=== PATIENT | female | born 1995 | race Hispanic/Latino ===

== ENCOUNTER 2022-12-13 13:04 | Emergency (ER) | payer OTHER, SELFPAY ==
[2022-12-13 13:26] VITALS: BP 130/74; PULSE 88; RESP 15; TEMP 36.3; O2SAT 100; BMI 26.6
[2022-12-13 16:29] LABS: Appearance Urine UA SL CLOUDY; Bilirubin Urine UA NEGATIVE (NEGATIVE); Color Urine UA YELLOW; Glucose Urine UA NEGATIVE (Negative); Ketones Urine UA NEGATIVE (NEGATIVE); Leukocyte Esterase Urine UA NEGATIVE (NEGATIVE); Nitrite Urine UA NEGATIVE (Negative); Occult Blood Urine UA TRACE-LYSED (Negative); Protein Urine UA NEGATIVE (Negative); Specific Gravity Urine UA 1.015 (1.000-1.035); Urobilinogen Urine UA 0.2 E.U./dL (0.2)
--- NOTE | 2022-12-13 16:32 | ED_ITS ---
HPI - Headache <JOSE Kaye - Last Filed: 12/13/22 20:27> General Chief Complaint: Headache Stated Complaint: High BP N/V headache blurry vision T-3 Time Seen by Provider: 12/13/22 15:58 Mode of arrival: Ambulatory History of Present Illness HPI Narrative: This is a 27-year-old female presents to the emergency department complaining of headache, nausea vomiting, blurry vision today, states that she is had worsening symptoms over the last 3 days with elevated blood pressure. Patient is Andorran- speaking mostly but speaks some Azeri, her Marisabel is interpreting for her. She is had a headache since Saturday, has had nausea vomiting, denies fever, chills, abdominal pain or pelvic pain. Denies dysuria urinary frequency, denies abnormal vaginal discharge. Denies any sick contacts at home. Is up-to-date on her vaccinations, denies flank pain, neck pain or recent trauma. Denies any chance of . Related Data Previous Rx's Medication Instructions Recorded acetaminophen 650 mg 650 mg PO Q8H PRN fever or pain 12/13/22 tablet,extended release (Tylenol #30 tabs Arthritis Pain) cephalexin 500 mg capsule 500 mg PO TID 5 days #15 caps 12/13/22 ibuprofen 600 mg tablet 600 mg PO Q8H PRN fever #20 tabs 12/13/22 ondansetron 4 mg disintegrating 4 mg PO Q8H PRN nausea and 12/13/22 tablet vomiting #14 tabs Allergies Allergy/AdvReac Type Severity Reaction Status Date / Time No Known Drug Allergies Allergy Verified 12/13/22 13:26 Review of Systems <JOSE Kaye - Last Filed: 12/13/22 20:27> Review of Systems ROS Unobtainable: All systems reviewed & are unremarkable except as noted in HPI and below Patient History <JOSE Kaye - Last Filed: 12/13/22 20:27> Social History Smoking Status: Unknown if ever smoked Smoking Status: Unknown if ever smoked alcohol intake frequency: holidays/special occasions only Substance Use Type: does not use Exam <JOSE Kaye - Last Filed: 12/13/22 20:27> Narrative Exam Narrative: Reviewed vitals signs and nursing notes. General: cooperative, comfortable, appears unwell but nontoxic well groomed HEENT: symmetrical facial expressions, dry mucous membranes, EOMI Cardiovascular: regular rate and rhythm, no peripheral edema, warm extremities Respiratory: normal effort, able to speak in complete sentences, without wheezing, stridor, or abnormal breath sounds. No retractions or tachypnea. GI: abdomen soft, nontender to palpation, nondistended, mild tenderness to palpation her periumbilical region, she denies pain and endorses only esophageal pain from vomiting, abdomen is without masses, rebound tenderness or exquisite tenderness with exam. MSK: moves all extremities, neurovascularly intact, no weakness, normal tone Skin: brisk capillary refill, without pallor or erythema Neuro: normal speech and cognition, A&O x3, ambulatory, clear speech Psych: mental status is grossly normal, congruent mood, normal affect, pleasant and cooperative Initial Vital Signs Initial Vital Signs: Vital Signs Temperature 97.4 F L 12/13/22 13:26 Pulse Rate 88 12/13/22 13:26 Respiratory Rate 15 12/13/22 13:26 Blood Pressure 130/74 12/13/22 13:26 Pulse Oximetry 100 12/13/22 13:26 Oxygen Delivery Method 12/13/22 13:26 <Marina Carr DO - Last Filed: 12/17/22 07:13> Initial Vital Signs Initial Vital Signs: Vital Signs Temperature 97.4 F L 12/13/22 13:26 Pulse Rate 88 12/13/22 13:26 Respiratory Rate 15 12/13/22 13:26 Blood Pressure 130/74 12/13/22 13:26 Pulse Oximetry 100 12/13/22 13:26 Oxygen Delivery Method 12/13/22 13:26 Course <JOSE Kaye - Last Filed: 12/13/22 20:27> Orders Ordered: Discontinued Medications Acetaminophen (Acetaminophen 325 Mg Tablet) 975 mg PO NOW ONE Stop: 12/13/22 16:21 Last Admin: 12/13/22 16:41 Dose: 975 mg Documented By: PACO Cephalexin HCl (Cephalexin 250 Mg Capsule) 500 mg PO NOW ONE Stop: 12/13/22 16:43 Last Admin: 12/13/22 17:01 Dose: 500 mg Documented By: PACO Dexamethasone (Dexamethasone 10 Mg/Ml Vial) 10 mg PO NOW ONE Stop: 12/13/22 16:18 Last Admin: 12/13/22 16:41 Dose: 10 mg Documented By: PACO Diphenhydramine HCl (Diphenhydramine 50 Mg/Ml Vial) 25 mg IV NOW ONE Stop: 12/13/22 17:37 Last Admin: 12/13/22 19:23 Dose: 25 mg Documented By: LUIZ Sodium Chloride (Normal Saline 0.9%) 1,000 mls @ 1,000 mls/hr IV BOLUS ONE Stop: 12/13/22 18:31 Last Infusion: 12/13/22 19:55 Dose: 0 mls/hr Documented By: Admin: 12/13/22 19: Dose: 1,000 mls/hr Documented By: LUIZ Ketorolac Tromethamine (Ketorolac 30 Mg/Ml Vial) 15 mg IM NOW ONE Stop: 12/13/22 16:02 Last Admin: 12/13/22 16:41 Dose: 15 mg Documented By: PACO Ondansetron HCl (Ondansetron 4 Mg Odt) 4 mg PO NOW ONE Stop: 12/13/22 16:18 Last Admin: 12/13/22 16:41 Dose: 4 mg Documented By: PACO Vital Signs Vital signs: Vital Signs - 8 hr 12/13/22 13:26 12/13/22 20:03 Temperature 97.4 F L 97.3 F L Pulse Rate 88 70 Respiratory Rate 15 16 Blood Pressure 130/74 122/68 Pulse Oximetry 100 97 Oxygen Delivery Method Room Air Room Air <Marina Carr DO - Last Filed: 12/17/22 07:13> Orders Ordered: Discontinued Medications Acetaminophen (Acetaminophen 325 Mg Tablet) 975 mg PO NOW ONE Stop: 12/13/22 16:21 Last Admin: 12/13/22 16:41 Dose: 975 mg Documented By: PACO Cephalexin HCl (Cephalexin 250 Mg Capsule) 500 mg PO NOW ONE Stop: 12/13/22 16:43 Last Admin: 12/13/22 17:01 Dose: 500 mg Documented By: PACO Dexamethasone (Dexamethasone 10 Mg/Ml Vial) 10 mg PO NOW ONE Stop: 12/13/22 16:18 Last Admin: 12/13/22 16:41 Dose: 10 mg Documented By: PACO Diphenhydramine HCl (Diphenhydramine 50 Mg/Ml Vial) 25 mg IV NOW ONE Stop: 12/13/22 17:37 Last Admin: 12/13/22 19:23 Dose: 25 mg Documented By: LUIZ Sodium Chloride (Normal Saline 0.9%) 1,000 mls @ 1,000 mls/hr IV BOLUS ONE Stop: 12/13/22 18:31 Last Infusion: 12/13/22 19:55 Dose: 0 mls/hr Documented By: Admin: 12/13/22 19:23 Dose: 1,000 mls/hr Documented By: LUIZ Ketorolac Tromethamine (Ketorolac 30 Mg/Ml Vial) 15 mg IM NOW ONE Stop: 12/13/22 16:02 Last Admin: 12/13/22 16:41 Dose: 15 mg Documented By: PACO Ondansetron HCl (Ondansetron 4 Mg Odt) 4 mg PO NOW ONE Stop: 12/13/22 16:18 Last Admin: 12/13/22 16:41 Dose: 4 mg Documented By: PACO Vital Signs Vital signs: Vital Signs - 8 hr 12/13/22 13:26 12/13/22 20:03 Temperature 97.4 F L 97.3 F L Pulse Rate 88 70 Respiratory Rate 15 16 Blood Pressure 130/74 122/68 Pulse Oximetry 100 97 Oxygen Delivery Method Room Air Room Air MDM - Headache <JOSE Kaye - Last Filed: 12/13/22 20:27> Lab Data Lab results narrative: Laboratory CLIA ID [id number] [address] [place] [id number] RUN DATE: 12/13/22 Specimen Inquiry PAGE 1 RUN TIME: 164 Name: Monica Cortez Age/Sex: 27/F Attend Dr: Taniya Grigsby Unit#: [id number] : 1995Location: ED Re12/13/22 Disch: Status: REG ER SPEC #: [id number] JESS: 12/13/22 STATUS: COMP REQ #: [id number] SPDESC: RECD: 12/13/22-[address]: Taniya GrigsbyP SOURCE: Vaginal ENTR: 12/13/22-[address]: Provider,Zee SANZ FAX TO: ORDERED: Wet Prep Procedure Result Verified Site Wet Prep Tric BV Terri Final 12/13/22- 1640 White blood cells No WBC seen Clue cells: None seen Yeast: None seen Trichomonas: None seen Result diagrams: 12/13/22 16:54 12/13/22 16:54 Labs: Lab Results 12/13/22 12/13/22 12/13/22 Range/Units 16:13 16:13 16:13 WBC (4.5-11.0) X10^3/uL RBC (4.0-5.2) X10^6/uL Hgb (12.0-16.0) g/dL Hct (36-46) % MCV (80-100) fL MCH (26-34) PG MCHC (30-36) % RDW (11.6-14.8) % Plt Count (150-400) X10^3/uL Neut % (Auto) (50-75) % Lymph % (Auto) (25-40) % [place] % (Auto) (3-14) % Eos % (Auto) (2-4) % Baso % (Auto) (0-2) % Neut # (Auto) (5546-0032) /uL Lymph # (Auto) (0947-1602) /uL [place] # (Auto) (0-900) /uL Eos # (Auto) (0-450) /uL Baso # (Auto) (0-100) /uL Sodium (137-145) mmol/L Potassium (3.4-5.1) mmol/L Chloride (98-107) mmol/L Carbon Dioxide (22-32) mmol/L BUN (7-17) mg/dL Creatinine (0.52-1.04) mg/dL Estimated GFR (>60) mL/min BUN/Creatinine Ratio (6-22) Glucose (70-100) mg/dL Lactate (0.7-2.1) mmol/L Calcium (8.4-10.2) mg/dL Total Bilirubin (0.2-1.3) mg/dL AST (14-36) IU/L ALT (<35) IU/L Alkaline Phosphatase (38-126) U/L C-Reactive Protein (<1.0) mg/dL Total Protein (6.3-8.2) g/dL Albumin (3.5-5.0) g/dL Globulin (1.7-4.1) g/dL Albumin/Globulin Ratio (1.0-2.8) Procalcitonin (<0.5) ng/mL Urine Color Yellow Urine Appearance Sl cloudy Urine pH 6.0 (4.5-8.0) Ur Specific [place] 1.015 (1.000-1.035) Urine Protein Negative (Negative) Urine Glucose (UA) Negative (Negative) g/dL Urine Ketones Negative (NEGATIVE) Urine Occult Blood Trace-lysed (Negative) Urine Nitrate Negative (Negative) Urine Bilirubin Negative (NEGATIVE) Urine Urobilinogen 0.2 (0.2) E.U./dL Ur Leukocyte Esterase Negative (NEGATIVE) Urine RBC None seen (0-5/HPF) Urine WBC 0-1/hpf (0-5/HPF) Ur Squamous Epith Cells 1-5 /hpf (0-5/HPF) Urine Bacteria Moderate (10-30) H (None) Ur Culture Indicated? Cult not indicated Urine Test Negative (Negative) Ur Chlamydia DNA (PCR) Not detected SARS-CoV-2 (PCR) (Negative) Influenza A (RT-PCR) (NEGATIVE) Influenza B (RT-PCR) (NEGATIVE) RSV (PCR) (Negative) N gonorrhoeae DNA (PCR) Not detected 12/13/22 12/13/22 12/13/22 Range/Units 16:20 16:54 16:54 WBC 11.4 H (4.5-11.0) X10^3/uL RBC 5.40 H (4.0-5.2) X10^6/uL Hgb 14.5 (12.0-16.0) g/dL Hct 44.9 (36-46) % MCV 83.2 (80-100) fL MCH 26.9 (26-34) PG MCHC 32.3 (30-36) % RDW 12.8 (11.6-14.8) % Plt Count 328 (150-400) X10^3/uL Neut % (Auto) 83.7 H (50-75) % Lymph % (Auto) 12.0 L (25-40) % [place] % (Auto) 3.9 (3-14) % Eos % (Auto) 0.1 L (2-4) % Baso % (Auto) 0.3 (0-2) % Neut # (Auto) 9500 H (8906-7243) /uL Lymph # (Auto) 1400 (9114-2695) /uL [place] # (Auto) 400 (0-900) /uL Eos # (Auto) 0 (0-450) /uL Baso # (Auto) 0 (0-100) /uL Sodium 138 (137-145) mmol/L Potassium 3.8 (3.4-5.1) mmol/L Chloride 99 (98-107) mmol/L Carbon Dioxide 25 (22-32) mmol/L BUN 15 (7-17) mg/dL Creatinine 0.68 (0.52-1.04) mg/dL Estimated GFR > 60 (>60) mL/min BUN/Creatinine Ratio 22.1 H (6-22) Glucose 102 H (70-100) mg/dL Lactate (0.7-2.1) mmol/L Calcium 9.6 (8.4-10.2) mg/dL Total Bilirubin 0.5 (0.2-1.3) mg/dL AST 24 (14-36) IU/L ALT 21 (<35) IU/L Alkaline Phosphatase 75 (38-126) U/L C-Reactive Protein (<1.0) mg/dL Total Protein 8.9 H (6.3-8.2) g/dL Albumin 5.0 (3.5-5.0) g/dL Globulin 3.9 (1.7-4.1) g/dL Albumin/Globulin Ratio 1.3 (1.0-2.8) Procalcitonin (<0.5) ng/mL Urine Color Urine Appearance Urine pH (4.5-8.0) Ur Specific [place] (1.000-1.035) Urine Protein (Negative) Urine Glucose (UA) (Negative) g/dL Urine Ketones (NEGATIVE) Urine Occult Blood (Negative) Urine Nitrate (Negative) Urine Bilirubin (NEGATIVE) Urine Urobilinogen (0.2) E.U./dL Ur Leukocyte Esterase (NEGATIVE) Urine RBC (0-5/HPF) Urine WBC (0-5/HPF) Ur Squamous Epith Cells (0-5/HPF) Urine Bacteria (None) Ur Culture Indicated? Urine Test (Negative) Ur Chlamydia DNA (PCR) SARS-CoV-2 (PCR) Negative (Negative) Influenza A (RT-PCR) Flu a negative (NEGATIVE) Influenza B (RT-PCR) Flu b negative (NEGATIVE) RSV (PCR) Negative (Negative) N gonorrhoeae DNA (PCR) 12/13/22 12/13/22 12/13/22 Range/Units 16:54 16:54 16:54 WBC (4.5-11.0) X10^3/uL RBC (4.0-5.2) X10^6/uL Hgb (12.0-16.0) g/dL Hct (36-46) % MCV (80-100) fL MCH (26-34) PG MCHC (30-36) % RDW (11.6-14.8) % Plt Count (150-400) X10^3/uL Neut % (Auto) (50-75) % Lymph % (Auto) (25-40) % [place] % (Auto) (3-14) % Eos % (Auto) (2-4) % Baso % (Auto) (0-2) % Neut # (Auto) (0014-0698) /uL Lymph # (Auto) (8737-2009) /uL [place] # (Auto) (0-900) /uL Eos # (Auto) (0-450) /uL Baso # (Auto) (0-100) /uL Sodium (137-145) mmol/L Potassium (3.4-5.1) mmol/L Chloride (98-107) mmol/L Carbon Dioxide (22-32) mmol/L BUN (7-17) mg/dL Creatinine (0.52-1.04) mg/dL Estimated GFR (>60) mL/min BUN/Creatinine Ratio (6-22) Glucose (70-100) mg/dL Lactate 1.2 (0.7-2.1) mmol/L Calcium (8.4-10.2) mg/dL Total Bilirubin (0.2-1.3) mg/dL AST (14-36) IU/L ALT (<35) IU/L Alkaline Phosphatase (38-126) U/L C-Reactive Protein < 0.5 (<1.0) mg/dL Total Protein (6.3-8.2) g/dL Albumin (3.5-5.0) g/dL Globulin (1.7-4.1) g/dL Albumin/Globulin Ratio (1.0-2.8) Procalcitonin < 0.03 (<0.5) ng/mL Urine Color Urine Appearance Urine pH (4.5-8.0) Ur Specific [place] (1.000-1.035) Urine Protein (Negative) Urine Glucose (UA) (Negative) g/dL Urine Ketones (NEGATIVE) Urine Occult Blood (Negative) Urine Nitrate (Negative) Urine Bilirubin (NEGATIVE) Urine Urobilinogen (0.2) E.U./dL Ur Leukocyte Esterase (NEGATIVE) Urine RBC (0-5/HPF) Urine WBC (0-5/HPF) Ur Squamous Epith Cells (0-5/HPF) Urine Bacteria (None) Ur Culture Indicated? Urine Test (Negative) Ur Chlamydia DNA (PCR) SARS-CoV-2 (PCR) (Negative) Influenza A (RT-PCR) (NEGATIVE) Influenza B (RT-PCR) (NEGATIVE) RSV (PCR) (Negative) N gonorrhoeae DNA (PCR) Imaging Data US - [place]UR[place]ON[place]: Radiologist's Impression: PROCEDURE:? US PELVIC COMPLETE ? INDICATIONS:? PELVIC FLUID VISUALIZED ON CT ? TECHNIQUE:? Real-time scanning was performed of the pelvic organs, with image documentation.? Additional endovaginal scanning was necessary due to incomplete visualization of the adnexal and endometrial structures by transabdominal scanning.? ? COMPARISON:? None. ? FINDINGS:? ?? Uterus:? Uterus is anteverted and normal in size at 6.2 x 3.1 x 5 cm. The myometrium is homogeneous.? No discrete uterine fibroids.? The endometrium measures 7.0 mm com bined thickness.? No gross endometrial mass or fluid. ? Ovaries:? The right ovary measures 4 x 3.2 x 3 cm, with a calculated ovarian volume of 19.9 cc. The left ovary measures foot 3.4 x 2.3 x 3.4 cm, with a calculated ovarian volume of 13.8 cc. The ovaries have a normal sonographic appearance.? Greater than 12 follicles can be seen in each ovary.? No adnexal masses are seen.? Normal blood flow is seen in bilateral ovaries on color Doppler images. ? Other:? Physiologic amount of free fluid is noted in lower pelvis. ? ? IMPRESSION:? 1. Normal appearing uterus and endometrium. 2. No evidence of ovarian torsion or solid appearing ovarian lesion.? Greater than 12 follicles are seen in each ovary which can be seen in the clinical setting of polycystic ovarian syndrome suggest clinical correlation. ? ? ? We strive to produce accurate, complete, and clear reports of imaging services. To assist us in improving patient care, this report was composed using standard report templates and voice recognition software. Therefore, it may contain abnormal punctuation, insertions and/or omissions. Occasional wrong-word or sound-alike substitutions may occur. Though we review the report and make efforts to correct it, we do recommend that the report be read carefully in proper context to recognize any text inaccuracies. ? ? Dictated by: Augustus Pereyra M.D. on 12/13/2022 at 19:42 ? ? Approved by: Augustus Pereyra M.D. on 12/13/2022 at 19:44 ? CT scan - abdomen/pelvis: Radiologist's Impression: PROCEDURE:? CT ABDOMEN PELVIS W CON ? INDICATIONS:? Vomiting, elevated white blood cell count, pelvic infection? ? TECHNIQUE:? After the administration of oral and IV contrast, axial sections were acquired from the lung bases to the pubic symphysis.? Coronal and sagittal reformats were performed.? For radiation dose reduction, the following was used:? automated exposure control, adjustment of mA and/or kV according to patient size. ? COMPARISON:? None. ? FINDINGS:? Image quality:? Excellent.? ? Lung bases:? Bibasilar atelectasis.? No pulmonary infiltrate or pleural effusion.? There is a 4 mm ground-glass nodule in the right lower lobe.? Small hydrocele.? Heart:? No significant findings. ? ? ABDOMEN: Liver:? Unremarkable.? ? Gallbladder:? Unremarkable.? ? Biliary ducts:? Unremarkable.? ? Pancreas:? Unremarkable.? ? Spleen:? Unremarkable.? ? Adrenal Glands:? Unremarkable.? ? Kidneys and Ureters:? Unremarkable.? ? ? Stomach and Bowel:? Stomach, small bowel loops, and colon are unremarkable.? Peritoneum:? No abnormal intraperitoneal fluid.? No free air.? ? Ventral Wall: ? No hernia.? Abdominal Nodes:? No retroperitoneal or mesenteric adenopathy by size criteria.? Vessels:? Aorta and inferior vena cava are normal in size.? ? PELVIS: Pelvic Organs:? Uterus is normal.? There is endometrial fluid.? Ovaries are unremarkable. ?No pathological free-fluid in the pelvis.? ? Bladder:? Unremarkable.? ? Pelvic Nodes: No enlarged lymph nodes.? Miscellaneous: No inguinal hernias are seen. ? ? ? Bones:? Unremarkable.? IMPRESSION:? ? 1. No acute inflammatory changes in abdomen or pelvis. 2. Normal appendix. 3. Fluid in the endometrial cavity, probably related to menses.? If clinically indicated, pelvic ultrasound would be helpful. 4. ? ? Dictated by: Nito Franks M.D. on 12/13/2022 at 17:16 ? ? Approved by: Nito Franks M.D. on 12/13/2022 at 17:23 ? MDM Narrative Medical decision making narrative: Medical decision making narrative: This is a 27-year-old female presents to the emergency department complaining of headache, nausea vomiting, blurry vision today, states that she is had worsening symptoms over the last 3 days with elevated blood pressure. Differential diagnoses include, but are not limited to: Acute viral respiratory infection including COVID-19 influenza, gastroenteritis, acute migraine, cystitis, nephrolithiasis, bacterial vaginal infection, appendicitis, dehydration, pyelonephritis, colitis, I have reviewed the patient's vital signs and nursing notes, no prior visits or lab work to review Lab test results independently reviewed, pertinent findings: UA shows moderate bacteria, small amount of squamous epithelial cells, could be contaminant although unlikely urine is negative My imaging interpretation: CT abdomen pelvis with contrast shows no acute inflammatory changes in abdomen or pelvis, normal appendix, fluid in the endometrial cavity. Pelvic ultrasound Course of care/re-evaluations: Met with patient and her , patient denies abdominal pain, feels poorly with a headache, nausea vomiting, last bowel movement was 3 days ago. Wet prep completed and came back negative for WBCs, clue cells yeast and Trichomonas. UA shows moderate bacteria with 1-5 squamous cells. Will treat for acute cystitis since her wet prep was negative. Awaiting respiratory panel, lab work 1700 awaiting lab work was medicated and is resting in the room. Treated with a p.o. migraine cocktail dexamethasone, Tylenol, Zofran and IM Toradol. Was given cephalexin p.o. x1, encouraged to stay hydrated 1800 patient's CBC shows a mild leukocytosis of 11.4, with a left shift, neutrophils of 9500, no lactic acidosis no elevation to liver enzymes, UA shows moderate bacteria microscopy with 1-5 squamous epithelial cells, could be contaminant, wet mount completed and was negative for all abnormalities. Mild hemoconcentration, suspect dehydration, respiratory panel COVID, influenza a, B and RSV, urine is negative. Urine culture is pending, BUN is slightly elevated at 22.1. Ordered IV placement and CT scan came to pick her up but no Nena ccess this time. [address] came back with no acute changes in abdomen or pelvis, normal appendix, fluid in the endometrial cavity, probably related to menses. Clinica lly indicated, pelvic ultrasound helpful is with the report states. Patient states that she is not on her menses, she had her menses it ended 1 week ago.. No pathological free fluid in the pelvis. Denies any pelvic pain or fullness at this time. UA shows moderate bacteria. Ordered pelvic ultrasound to evaluate endometrial fluid. 193 new nurse taking over care, patient will now receive IV fluids and medications ordered. Her discharge is ready, treating for acute cystitis, headache and dehydration. 1999 patient received IV fluids, her headache is much better, wishes to discharge home. She was discharged with strict return precautions. Patient's symptoms improved over duration of stay with above-stated therapies. Questions are addressed and there is agreement with the plan and for follow-up. Patient is appropriate for outpatient management. MIPS: This encounter doesn't have any diagnosis associated with MIPS criteria. I collaborated with the ED attending physician for MEENU level 2, 3, and some level 4s as appropriate. <Marina Carr, DO - Last Filed: 12/17/22 07:13> Lab Data Labs: Lab Results 12/13/22 12/13/22 12/13/22 Range/Units 16:13 16:13 16:13 WBC (4.5-11.0) X10^3/uL RBC (4.0-5.2) X10^6/uL Hgb (12.0-16.0) g/dL Hct (36-46) % MCV (80-100) fL MCH (26-34) PG MCHC (30-36) % RDW (11.6-14.8) % Plt Count (150-400) X10^3/uL Neut % (Auto) (50-75) % Lymph % (Auto) (25-40) % [place] % (Auto) (3-14) % Eos % (Auto) (2-4) % Baso % (Auto) (0-2) % Neut # (Auto) (7672-4761) /uL Lymph # (Auto) (3134-8370) /uL [place] # (Auto) (0-900) /uL Eos # (Auto) (0-450) /uL Baso # (Auto) (0-100) /uL Sodium (137-145) mmol/L Potassium (3.4-5.1) mmol/L Chloride (98-107) mmol/L Carbon Dioxide (22-32) mmol/L BUN (7-17) mg/dL Creatinine (0.52-1.04) mg/dL Estimated GFR (>60) mL/min BUN/Creatinine Ratio (6-22) Glucose (70-100) mg/dL Lactate (0.7-2.1) mmol/L Calcium (8.4-10.2) mg/dL Total Bilirubin (0.2-1.3) mg/dL AST (14-36) IU/L ALT (<35) IU/L Alkaline Phosphatase (38-126) U/L C-Reactive Protein (<1.0) mg/dL Total Protein (6.3-8.2) g/dL Albumin (3.5-5.0) g/dL Globulin (1.7-4.1) g/dL Albumin/Globulin Ratio (1.0-2.8) Procalcitonin (<0.5) ng/mL Urine Color Yellow Urine Appearance Sl cloudy Urine pH 6.0 (4.5-8.0) Ur Specific [place] 1.015 (1.000-1.035) Urine Protein Negative (Negative) Urine Glucose (UA) Negative (Negative) g/dL Urine Ketones Negative (NEGATIVE) Urine Occult Blood Trace-lysed (Negative) Urine Nitrate Negative (Negative) Urine Bilirubin Negative (NEGATIVE) Urine Urobilinogen 0.2 (0.2) E.U./dL Ur Leukocyte Esterase Negative (NEGATIVE) Urine RBC None seen (0-5/HPF) Urine WBC 0-1/hpf (0-5/HPF) Ur Squamous Epith Cells 1-5 /hpf (0-5/HPF) Urine Bacteria Moderate (10-30) H (None) Ur Culture Indicated? Cult not indicated Urine Test Negative (Negative) Ur Chlamydia DNA (PCR) Not detected SARS-CoV-2 (PCR) (Negative) Influenza A (RT-PCR) (NEGATIVE) Influenza B (RT-PCR) (NEGATIVE) RSV (PCR) (Negative) N gonorrhoeae DNA (PCR) Not detected 12/13/22 12/13/22 12/13/22 Range/Units 16:20 16:54 16:54 WBC 11.4 H (4.5-11.0) X10^3/uL RBC 5.40 H (4.0-5.2) X10^6/uL Hgb 14.5 (12.0-16.0) g/dL Hct 44.9 (36-46) % MCV 83.2 (80-100) fL MCH 26.9 (26-34) PG MCHC 32.3 (30-36) % RDW 12.8 (11.6-14.8) % Plt Count 328 (150-400) X10^3/uL Neut % (Auto) 83.7 H (50-75) % Lymph % (Auto) 12.0 L (25-40) % [place] % (Auto) 3.9 (3-14) % Eos % (Auto) 0.1 L (2-4) % Baso % (Auto) 0.3 (0-2) % Neut # (Auto) 9500 H (6717-8002) /uL Lymph # (Auto) 1400 (5845-5944) /uL [place] # (Auto) 400 (0-900) /uL Eos # (Auto) 0 (0-450) /uL Baso # (Auto) 0 (0-100) /uL Sodium 138 (137-145) mmol/L Potassium 3.8 (3.4-5.1) mmol/L Chloride 99 (98-107) mmol/L Carbon Dioxide 25 (22-32) mmol/L BUN 15 (7-17) mg/dL Creatinine 0.68 (0.52-1.04) mg/dL Estimated GFR > 60 (>60) mL/min BUN/Creatinine Ratio 22.1 H (6-22) Glucose 102 H (70-100) mg/dL Lactate (0.7-2.1) mmol/L Calcium 9.6 (8.4-10.2) mg/dL Total Bilirubin 0.5 (0.2-1.3) mg/dL AST 24 (14-36) IU/L ALT 21 (<35) IU/L Alkaline Phosphatase 75 (38-126) U/L C-Reactive Protein (<1.0) mg/dL Total Protein 8.9 H (6.3-8.2) g/dL Albumin 5.0 (3.5-5.0) g/dL Globulin 3.9 (1.7-4.1) g/dL Albumin/Globulin Ratio 1.3 (1.0-2.8) Procalcitonin (<0.5) ng/mL Urine Color Urine Appearance Urine pH (4.5-8.0) Ur Specific [place] (1.000-1.035) Urine Protein (Negative) Urine Glucose (UA) (Negative) g/dL Urine Ketones (NEGATIVE) Urine Occult Blood (Negative) Urine Nitrate (Negative) Urine Bilirubin (NEGATIVE) Urine Urobilinogen (0.2) E.U./dL Ur Leukocyte Esterase (NEGATIVE) Urine RBC (0-5/HPF) Urine WBC (0-5/HPF) Ur Squamous Epith Cells (0-5/HPF) Urine Bacteria (None) Ur Culture Indicated? Urine Test (Negative) Ur Chlamydia DNA (PCR) SARS-CoV-2 (PCR) Negative (Negative) Influenza A (RT-PCR) Flu a negative (NEGATIVE) Influenza B (RT-PCR) Flu b negative (NEGATIVE) RSV (PCR) Negative (Negative) N gonorrhoeae DNA (PCR) 12/13/22 12/13/22 12/13/22 Range/Units 16:54 16:54 16:54 WBC (4.5-11.0) X10^3/uL RBC (4.0-5.2) X10^6/uL Hgb (12.0-16.0) g/dL Hct (36-46) % MCV (80-100) fL MCH (26-34) PG MCHC (30-36) % RDW (11.6-14.8) % Plt Count (150-400) X10^3/uL Neut % (Auto) (50-75) % Lymph % (Auto) (25-40) % [place] % (Auto) (3-14) % Eos % (Auto) (2-4) % Baso % (Auto) (0-2) % Neut # (Auto) (2440-7517) /uL Lymph # (Auto) (6531-2496) /uL [place] # (Auto) (0-900) /uL Eos # (Auto) (0-450) /uL Baso # (Auto) (0-100) /uL Sodium (137-145) mmol/L Potassium (3.4-5.1) mmol/L Chloride (98-107) mmol/L Carbon Dioxide (22-32) mmol/L BUN (7-17) mg/dL Creatinine (0.52-1.04) mg/dL Estimated GFR (>60) mL/min BUN/Creatinine Ratio (6-22) Glucose (70-100) mg/dL Lactate 1.2 (0.7-2.1) mmol/L Calcium (8.4-10.2) mg/dL Total Bilirubin (0.2-1.3) mg/dL AST (14-36) IU/L ALT (<35) IU/L Alkaline Phosphatase (38-126) U/L C-Reactive Protein < 0.5 (<1.0) mg/dL Total Protein (6.3-8.2) g/dL Albumin (3.5-5.0) g/dL Globulin (1.7-4.1) g/dL Albumin/Globulin Ratio (1.0-2.8) Procalcitonin < 0.03 (<0.5) ng/mL Urine Color Urine Appearance Urine pH (4.5-8.0) Ur Specific [place] (1.000-1.035) Urine Protein (Negative) Urine Glucose (UA) (Negative) g/dL Urine Ketones (NEGATIVE) Urine Occult Blood (Negative) Urine Nitrate (Negative) Urine Bilirubin (NEGATIVE) Urine Urobilinogen (0.2) E.U./dL Ur Leukocyte Esterase (NEGATIVE) Urine RBC (0-5/HPF) Urine WBC (0-5/HPF) Ur Squamous Epith Cells (0-5/HPF) Urine Bacteria (None) Ur Culture Indicated? Urine Test (Negative) Ur Chlamydia DNA (PCR) SARS-CoV-2 (PCR) (Negative) Influenza A (RT-PCR) (NEGATIVE) Influenza B (RT-PCR) (NEGATIVE) RSV (PCR) (Negative) N gonorrhoeae DNA (PCR) Discharge Plan Departure Patient Disposition: Home Clinical Impression: Acute cystitis Qualifiers: Hematuria presence: without hematuria Qualified Code(s): N30.00 - Acute cystitis without hematuria Headache Qualifiers: Headache type: unspecified Headache chronicity pattern: acute headache Intractability: intractable Qualified Code(s): R51.9 - Headache, unspecified Nausea and vomiting Qualifiers: Vomiting type: unspecified Qualified Code(s): R11.2 - Nausea with vomiting, unspecified Instructions: Acute Cystitis, DI for Headache Activity Restrictions/Additional Instructions: *You have been diagnosed with most likely a bladder infection as the urine showed bacteria but everything else came back relatively reassuring. I think you were dehydrated and since your vomiting, caused the elevation to your white blood cells. If you have any worsening of your symptoms, please come back to the emergency department. I have prescribed for you an antibiotic take 3 times a day for the next 5 days, take Tylenol and ibuprofen together every 6 hours as needed for your pain, use Zofran for nausea, your flu, COVID and RSV test was negative. Please try and rest, I hope you feel better soon. The CT does not show any concerning findings of your appendix, organs or other systems. *What to do: *Please continue to take your regular medications as directed. [x ] New medication prescriptions sent to your pharmacy: [ [facility] [place]] [ ] New medication written as a paper prescription [ ] No new medications given *Please follow up with your primary care provider in 2-3 days, call for an appointment. Let them know you were seen in the Emergency Department and that we asked that you be seen for follow-up. We will electronically transmit a record of today's note if your PCP is in our system *If you do not have a primary care provider please contact [phone] to establish care with one of the primary care providers. *Return to Emergency Department if you should have any new, worsening, or concerning symptoms, such as [fever greater than 101F, chills, worsening pain, persistent vomiting or other bothersome symptoms]. Prescriptions: New cephalexin 500 mg capsule 500 mg PO TID 5 Days Qty: 15 0RF ondansetron 4 mg tablet,disintegrating 4 mg PO Q8H PRN (Reason: nausea and vomiting) Qty: 14 0RF acetaminophen [Tylenol Arthritis Pain] 650 mg tablet extended release 650 mg PO Q8H PRN (Reason: fever or pain) Qty: 30 0RF ibuprofen 600 mg tablet 600 mg PO Q8H PRN (Reason: fever) Qty: 20 0RF Referrals: [facility] [Primary Care Provider] - Stand Alone Forms: Patient Portal/API <Marina Carr DO - Last Filed: 12/17/22 07:13> Cosign ED Attending Mariliaature Attestation: I was immediately available in the department for consultation. Documentation has been reviewed.
[2022-12-13 16:33] LABS: Pregnancy Test Urine Negative (Negative)
[2022-12-13 16:36] LABS: Bacteria Urine Moderate (10-30); Culture Indicated Urine Cult Not Indicated; RBC Urine None Seen (0-5/HPF); Squamous Epithelial Cell Urine 1-5 /HPF (0-5/HPF); WBC Urine 0-1/HPF (0-5/HPF)
[2022-12-13] MEDS: ONDANSETRON 4 MG ODT PO (16:41)
[2022-12-13] MEDS: ACETAMINOPHEN 325 MG TABLET 975 MG PO (16:41)
[2022-12-13] MEDS: DEXAMETHASONE 10 MG/ML VIAL PO (16:41)
[2022-12-13] MEDS: KETOROLAC 30 MG/ML VIAL 15 MG IM (16:41)
[2022-12-13] MEDS: cephALEXin 250 MG CAPSULE 500 MG PO (17:01)
[2022-12-13 17:09] LABS: Add Manual Diff / Slide Review NO; Basophils Absolute Auto 0 /uL (0-100); Basophils Percent Auto 0.3 % (0-2); Eosinophils Absolute Auto 0 /uL (0-450); Eosinophils Percent Auto 0.1 % (2-4); Hematocrit 44.9 % (36-46); Hemoglobin 14.5 g/dL (12.0-16.0); Lymphocytes Absolute Auto 1400 /uL (1100-4500); Mean Corpuscular HGB Conc 32.3 % (30-36); Mean Corpuscular Hemoglobin 26.9 PG (26-34); Mean Corpuscular Volume 83.2 fL (80-100); Monocytes Absolute Auto 400 /uL (0-900); Monocytes Percent Auto 3.9 % (3-14); Neutrophils Absolute Auto 9500 /uL (1500-7000); Neutrophils Percent Auto 83.7 % (50-75); Platelet Count 328 X10^3/uL (150-400); Red Cell Distribution Width 12.8 % (11.6-14.8); White Blood Cell Count 11.4 X10^3/uL (4.5-11.0)
[2022-12-13 17:10] LABS: Influenza A - CEPHEID Flu A NEGATIVE (NEGATIVE); Influenza B - CEPHEID Flu B NEGATIVE (NEGATIVE); Respiratory Syncytial Virus Negative (Negative)
[2022-12-13 17:26] LABS: COVID-19 CEPHEID 4-PLEX PCR Negative (Negative)
[2022-12-13 17:28] LABS: Alanine Aminotransferase 21 IU/L (<35); Alkaline Phosphatase 75 U/L (38-126); Aspartate Aminotransferase 24 IU/L (14-36); BUN Creatinine Ratio 22.1 (6-22); Bilirubin Total 0.5 mg/dL (0.2-1.3); Blood Urea Nitrogen 15 mg/dL (7-17); Calcium 9.6 mg/dL (8.4-10.2); Carbon Dioxide 25 mmol/L (22-32); Chloride 99 mmol/L (98-107); Estimated Glomerular Filt Rate > 60 mL/min (>60); Glucose 102 mg/dL (70-100); HEMOLYSIS < 15 (0-50); Potassium 3.8 mmol/L (3.4-5.1); Sodium 138 mmol/L (137-145); Total Protein 8.9 g/dL (6.3-8.2)
[2022-12-13 17:29] LABS: Lactate (Lactic Acid) 1.2 mmol/L (0.7-2.1)
--- NOTE | 2022-12-13 17:32 | DI.CT.S_ITS ---
PROCEDURE: CT ABDOMEN PELVIS W CON INDICATIONS: Vomiting, elevated white blood cell count, pelvic infection? TECHNIQUE: After the administration of oral and IV contrast, axial sections were acquired from the lung bases to the pubic symphysis. Coronal and sagittal reformats were performed. For radiation dose reduction, the following was used: automated exposure control, adjustment of mA and/or kV according to patient size. COMPARISON: None. FINDINGS: Image quality: Excellent. Lung bases: Bibasilar atelectasis. No pulmonary infiltrate or pleural effusion. There is a 4 mm ground-glass nodule in the right lower lobe. Small hydrocele. Heart: No significant findings. ABDOMEN: Liver: Unremarkable. Gallbladder: Unremarkable. Biliary ducts: Unremarkable. Pancreas: Unremarkable. Spleen: Unremarkable. Adrenal Glands: Unremarkable. Kidneys and Ureters: Unremarkable. Stomach and Bowel: Stomach, small bowel loops, and colon are unremarkable. Peritoneum: No abnormal intraperitoneal fluid. No free air. Ventral Wall: No hernia. Abdominal Nodes: No retroperitoneal or mesenteric adenopathy by size criteria. Vessels: Aorta and inferior vena cava are normal in size. PELVIS: Pelvic Organs: Uterus is normal. There is endometrial fluid. Ovaries are unremarkable. No pathological free-fluid in the pelvis. Bladder: Unremarkable. Pelvic Nodes: No enlarged lymph nodes. Miscellaneous: No inguinal hernias are seen. Bones: Unremarkable. IMPRESSION: 1. No acute inflammatory changes in abdomen or pelvis. 2. Normal appendix. 3. Fluid in the endometrial cavity, probably related to menses. If clinically indicated, pelvic ultrasound would be helpful. 4. Dictated by: Nito Franks M.D. on 12/13/2022 at 17:16 Approved by: Nito Franks M.D. on 12/13/2022 at 17:23
[2022-12-13 17:51] LABS: C-Reactive Protein Quant < 0.5 mg/dL (<1.0)
[2022-12-13 18:05] LABS: Procalcitonin < 0.03 ng/mL (<0.5)
--- NOTE | 2022-12-13 18:27 | DI.US.S_ITS ---
PROCEDURE: US PELVIC COMPLETE INDICATIONS: PELVIC FLUID VISUALIZED ON CT TECHNIQUE: Real-time scanning was performed of the pelvic organs, with image documentation. Additional endovaginal scanning was necessary due to incomplete visualization of the adnexal and endometrial structures by transabdominal scanning. COMPARISON: None. FINDINGS: Uterus: Uterus is anteverted and normal in size at 6.2 x 3.1 x 5 cm. The myometrium is homogeneous. No discrete uterine fibroids. The endometrium measures 7.0 mm combined thickness. No gross endometrial mass or fluid. Ovaries: The right ovary measures 4 x 3.2 x 3 cm, with a calculated ovarian volume of 19.9 cc. The left ovary measures foot 3.4 x 2.3 x 3.4 cm, with a calculated ovarian volume of 13.8 cc. The ovaries have a normal sonographic appearance. Greater than 12 follicles can be seen in each ovary. No adnexal masses are seen. Normal blood flow is seen in bilateral ovaries on color Doppler images. Other: Physiologic amount of free fluid is noted in lower pelvis. IMPRESSION: 1. Normal appearing uterus and endometrium. 2. No evidence of ovarian torsion or solid appearing ovarian lesion. Greater than 12 follicles are seen in each ovary which can be seen in the clinical setting of polycystic ovarian syndrome suggest clinical correlation. We strive to produce accurate, complete, and clear reports of imaging services. To assist us in improving patient care, this report was composed using standard report templates and voice recognition software. Therefore, it may contain abnormal punctuation, insertions and/or omissions. Occasional wrong-word or sound-alike substitutions may occur. Though we review the report and make efforts to correct it, we do recommend that the report be read carefully in proper context to recognize any text inaccuracies. Dictated by: Augustus Pereyra M.D. on 12/13/2022 at 19:42 Approved by: Augustus Pereyra M.D. on 12/13/2022 at 19:44
[2022-12-13] MEDS: SODIUM CHLORIDE 0.9% 1,000 ML 1000 ML IV (19:23)
[2022-12-13] MEDS: diphenhydrAMINE 50 MG/ML VIAL 25 MG IV (19:23)
[2022-12-13 20:03] VITALS: BP 122/68; PULSE 70; RESP 16; TEMP 36.3; O2SAT 97
[2022-12-13 21:14] LABS: Urine N gonorrhoeae NOT DETECTED
[2022-12-13 21:39] LABS: Urine Chlamydia NOT DETECTED
[2022-12-14 17:05] LABS: Albumin Globulin Ratio 1.3 (1.0-2.8); Globulin 3.9 g/dL (1.7-4.1)
== END 2022-12-13 20:04 | disposition home or self-care (01) ==
PROVIDERS: Emergency Provider Nurse Practitioner Critical Care Medicine
DX: N30.00 Acute cystitis without hematuria (principal); I10 Essential (primary) hypertension; R51.9 Headache, unspecified; R11.2 Nausea with vomiting, unspecified; Z20.822 Contact with and (suspected) exposure to COVID-19
CPT/HCPCS: 0241U; 36415; 74177; 76856; 80053; 81001; 81025; 83605; 84145; 85025; 86140; 87210; 87491; 87591; 96361; 96372; 96374; 99284; 99285; J1100; J1200; J1885